=== PATIENT | male | born 1945 | race Caucasian/White ===

== ENCOUNTER 2017-11-21 08:22 | Day surgery (SDC) | payer MEDICARE, OTHER ==
[~2017-11-21] VITALS: Ht 172.7 cm; Wt 86.4 kg
[~2017-11-21 08:22] MED LIST: AMLO5 PO; ASPI81CH PO; Aspir-Low81 MG PO; Belladonna-Opi1 EAC1 RC; CHOL10002 PO; CIPR500 PO; DRON400T PO; FINA5 PO; FLUT44OIA INH; Flonase 0.05% N16 GM; GLIP5ER PO; HYDCHL25 PO; Hydrochlorothia25 MG PO; LOVA40 PO; METF500 PO; METF500C PO; METO25ER PO; METO50ER PO; NEBI5 PO; OMEP20ER PO; TAMS.4ER PO; Ultram50 MG PO; XARELTO20 MG PO
== END 2017-11-21 10:26 | disposition home or self-care (01) ==
LOC: ORSCSDS 08:22
PROVIDERS: Internal Medicine Gastroenterology
PROC: 0DJ08ZZ Inspection of Upper Intestinal Tract, Via Natural or Artificial Opening Endoscopic (ICD-10-PCS; principal; 2017-11-21 09:45)
DX: K31.89 Other diseases of stomach and duodenum (principal); K20.8 Other esophagitis; K21.9 Gastro-esophageal reflux disease without esophagitis; I10 Essential (primary) hypertension; E11.9 Type 2 diabetes mellitus without complications; Z86.73 Personal history of transient ischemic attack (TIA), and cerebral infarction without residual deficits; Z79.899 Other long term (current) drug therapy
CPT/HCPCS: 82947

== ENCOUNTER 2017-11-28 09:41 | Day surgery (SDC) | payer MEDICARE, OTHER ==
[~2017-11-28] VITALS: Ht 172.7 cm; Wt 84.7 kg
[2017-11-28] MEDS ORDERED: LOSA25 PO (10:48)
[2017-11-28] MEDS ORDERED: AMLO5 PO (10:48)
== END 2017-11-28 13:05 | disposition home or self-care (01) ==
LOC: ORSCSDS 09:41
PROVIDERS: Podiatrist Foot & Ankle Surgery
PROC: 0QBR0ZZ Excision of Left Toe Phalanx, Open Approach (ICD-10-PCS; principal; 2017-11-28 11:45)
DX: M20.62 Acquired deformities of toe(s), unspecified, left foot (principal); I48.0 Paroxysmal atrial fibrillation; E11.22 Type 2 diabetes mellitus with diabetic chronic kidney disease; I12.9 Hypertensive chronic kidney disease with stage 1 through stage 4 chronic kidney disease, or unspecified chronic kidney disease; N18.2 Chronic kidney disease, stage 2 (mild); Z86.73 Personal history of transient ischemic attack (TIA), and cerebral infarction without residual deficits; Z79.01 Long term (current) use of anticoagulants; Z79.84 Long term (current) use of oral hypoglycemic drugs; Z79.899 Other long term (current) drug therapy; Z87.891 Personal history of nicotine dependence
CPT/HCPCS: 82947; 93005; 93010; J0171; J2250; J2405; J3010; J7120

== ENCOUNTER 2017-12-19 10:20 | Day surgery (SDC) | payer MEDICARE, OTHER ==
[~2017-12-19] VITALS: Ht 172.7 cm; Wt 84.2 kg
[~2017-12-19 10:20] MED LIST changes: +LOSA25 PO
== END 2017-12-19 11:58 | disposition home or self-care (01) ==
LOC: ORSCSDS 10:20
PROVIDERS: Internal Medicine Gastroenterology
PROC: 0DB68ZX Excision of Stomach, Via Natural or Artificial Opening Endoscopic, Diagnostic (ICD-10-PCS; principal; 2017-12-19 12:00)
DX: K31.89 Other diseases of stomach and duodenum (principal); R11.2 Nausea with vomiting, unspecified; K44.9 Diaphragmatic hernia without obstruction or gangrene; K21.9 Gastro-esophageal reflux disease without esophagitis; I10 Essential (primary) hypertension; I48.0 Paroxysmal atrial fibrillation; E11.42 Type 2 diabetes mellitus with diabetic polyneuropathy; Z79.899 Other long term (current) drug therapy
CPT/HCPCS: 82947; 88305; 88341; 88342; J7120

== ENCOUNTER 2019-08-27 08:19 | Day surgery (SDC) | payer MEDICARE, OTHER ==
[~2019-08-27] VITALS: Ht 172.7 cm; Wt 83.6 kg
[~2019-08-27 08:19] MED LIST changes: +ATOR10 PO; +Bisoprolol Fumar5 MG PO; +ELIQUIS5 MG PO; +MAGNESIUM OXID500 MG PO; +XOLAIR150 MG/1 M SC
--- NOTE | 2019-08-27 09:43 | NUR ---
Ambulatory in Day Surgery. History, Chart, Medications and Allergies reviewed before start of procedure. Lungs clear T/O to Auscultation. Patient confirms NPO status and agrees with scheduled surgery. Pre-Op teaching done. Pt verbalizes understanding. Patient States Post-Procedure ride home has been arranged. Patient reports completing Chlorhexadine shower X2 prior to admission to hospital.
--- NOTE | 2019-08-27 11:50 | NUR ---
PT REPORTS THAT HIS BLOOD PRESSURE HAS BEEN RUNNING LOW FOR PAST FEW WEEKS. PT DENIES DIZZINESS WITH POSITION CHANGES OR WITH STANDING. PT ENCOURAGED TO MONITOR BLOOD PRESSURE AT HOME AND HAVE AVAILABE FOR HIS PCP OR CARDIOLOGY. PT REPORTS SOME PAIN BUT MOVES IN DS WELL. Discharge instructions reviewed with patient. Patient verbalizes understanding. Copy given to patient to take home. Dressing to procedure site clean, dry, intact with no visible drainage, swelling, erythema or bruising noted. Patient States Post-Procedure ride home has been arranged.
--- NOTE | 2019-08-27 11:55 | NUR ---
Discharged via wheelchair to private car for ride home.
--- NOTE | 2019-08-27 15:38 | NUR ---
PT C/O NAUSEA, REGLAN 10MG GIVEN IV. PT CONTINUES TO DRIFT OF TO SLEEP AND O2 SATS DROP INTO THE HIGH 88-90% ON 3L NC. PT ENCOURAGED TO TAKE DEEP BREATHS. BIOX UP TO 96%
--- NOTE | 2019-08-27 15:45 | NUR ---
PT TOOK A FEW ICE CHIPS AND THEN C/O NAUSEA. REGLAN 10MG GIVEN IV. PT CONTINUES TO NEED TO BE ENCOURAGE TO TAKE DEEP BREATHS. PT HAS PERIODS OF APNEA WITH DESATURATION. PT C/O PAIN WITH MOVEMENT OR DEEP BREATHING.
--- NOTE | 2019-08-27 15:58 | NUR ---
PT C/O WANTING TO SLEEP AND PAIN 05/03. PT GIVEN SUBLIMAZE 25MCG SLOW IV PUSH. PT REPORTS NAUSEA BETTER AT THIS TIME.
--- NOTE | 2019-08-27 16:32 | NUR ---
RECEIVED ORDERS FROM DR. TAN TO ADMIT PATIENT FOR EXTENDED RECOVERY DUE TO PT NOT ABLE TO WAKE UP AND STAY AWAKE. PT STILL REQUIRING O2 TO KEEP BIOX ABOVE 92%. PT ROUSES TO VERBAL STIMULI BUT FALLS ASLEEP QUICKLY WITH LIGHT SNORING RESPIRATIONS. WAITING TO PROVIDE REPORT TO NURSE FOR PT TO GO TO ROOM 227. PT UPDATED TO THE PLAN AND SHE REPORTS THAT SHE WILL GO HOME AT THIS TIME. PT UPDATED.
--- NOTE | 2019-08-27 16:40 | NUR ---
REPORT TO CHINO HEATON AT THIS TIME. PT TAKE TO FLOOR VIA [facility]GR[facility] BY DHIRAJ HEATON.
--- NOTE | 2019-08-27 18:14 | NUR ---
PT HAS BEEN STABLE POST OP. PT HAS BEEN SOMNOLENT BUT WAKES EASILY TO VERBAL STIMULI. PT REMAINS ON 2L O2 HIS SATS DROP WITH SLEEP. IV S.L. PT EZEKIEL CLEAR LIQUIDS AND MAY ADVANCE DIET TOLERATED. NO COMPLAINTS OF PAIN. ICE PACK TO ABDOMEN. ABDOMINAL INCISIONS WITH WOUND GLUE AND ABD BINDER IN PLACE. NO VOID YET SINCE MIRANDA DC'D POST OP. PLAN FOR PT TO DC HOME IN THE AM IF STABLE.
--- NOTE | 2019-08-28 06:03 | NUR ---
SUMMARY PT WITH HTN TONIGHT.173/105 CONFIRMED AND DIASTOLIC HU AT 107. I CALLED DR SALINAS AND RECEIVED ORDER FOR COZAAR AT HOME.GAVE 25 MG TONIGHT WITH IMPROVEMENT NOTED.WILL RECEIVE ANOTHER COZAAR THIS AM.NO C/O NAUSEA. VOIDING AND REPOSITIONING.
[2019-08-28] MEDS ORDERED: Percocet 5-3251 EACH PO (10:14)
--- NOTE | 2019-08-28 12:11 | NUR ---
DISCHARGE: EDUCATION PACKET GIVEN TO PT, IV'S DC'D. PT HOME WITH PERCOCET SCRIPT. LEFT UNIT AT ABOUT 1115 WITH KAREN ISBELL VIA WHEELCHAIR
== END 2019-08-28 11:23 | disposition home or self-care (01) ==
LOC: ORSCMMR 08:19 → ORD 10:00 → ORSCMMR 10:00 → SURS 16:53 → ORSCMMR 08-28 11:23
PROVIDERS: Surgery
PROC: 8E0W4CZ Robotic Assisted Procedure of Trunk Region, Percutaneous Endoscopic Approach (ICD-10-PCS; principal; 2019-08-27 10:00)
PROC: 0WUF4JZ Supplement Abdominal Wall with Synthetic Substitute, Percutaneous Endoscopic Approach (ICD-10-PCS; principal; 2019-08-27 10:00)
DX: K43.0 Incisional hernia with obstruction, without gangrene (principal); E11.22 Type 2 diabetes mellitus with diabetic chronic kidney disease; I12.9 Hypertensive chronic kidney disease with stage 1 through stage 4 chronic kidney disease, or unspecified chronic kidney disease; N18.2 Chronic kidney disease, stage 2 (mild); E11.40 Type 2 diabetes mellitus with diabetic neuropathy, unspecified; I25.2 Old myocardial infarction; I48.91 Unspecified atrial fibrillation; Z79.01 Long term (current) use of anticoagulants; Z86.73 Personal history of transient ischemic attack (TIA), and cerebral infarction without residual deficits; Z79.899 Other long term (current) drug therapy
CPT/HCPCS: 49655; S2900; 36415; 82565; 82947; C1781; J0690; J1100; J2250; J2370; J2405; J2704; J2710; J2765; J3010; J7120

== ENCOUNTER 2020-04-19 00:04 | Day surgery (SDC) | payer MEDICARE ==
[~2020-04-19 00:04] MED LIST changes: +Percocet 5-3251 EACH PO; +WARF4 PO
[2020-04-19] MEDS ORDERED: WARF2 PO (10:28)
== END 2020-04-19 10:35 | disposition home or self-care (01) ==
LOC: ATC 00:04
DX: L50.1 Idiopathic urticaria (principal); E11.22 Type 2 diabetes mellitus with diabetic chronic kidney disease; I12.9 Hypertensive chronic kidney disease with stage 1 through stage 4 chronic kidney disease, or unspecified chronic kidney disease; N18.3 Chronic kidney disease, stage 3 (moderate); Z88.0 Allergy status to penicillin; Z88.5 Allergy status to narcotic agent; Z79.84 Long term (current) use of oral hypoglycemic drugs; F17.290 Nicotine dependence, other tobacco product, uncomplicated; Z79.01 Long term (current) use of anticoagulants
CPT/HCPCS: 96372; J2357

== ENCOUNTER 2020-08-23 00:13 | Day surgery (SDC) | payer MEDICARE, BC ==
[~2020-08-23 00:13] MED LIST changes: +WARF2 PO
== END 2020-08-23 09:48 | disposition home or self-care (01) ==
LOC: ATC 00:13
DX: L40.1 Generalized pustular psoriasis (principal); E11.22 Type 2 diabetes mellitus with diabetic chronic kidney disease; I12.9 Hypertensive chronic kidney disease with stage 1 through stage 4 chronic kidney disease, or unspecified chronic kidney disease; N18.3 Chronic kidney disease, stage 3 (moderate); Z88.0 Allergy status to penicillin; Z88.5 Allergy status to narcotic agent; Z79.899 Other long term (current) drug therapy; Z79.84 Long term (current) use of oral hypoglycemic drugs; Z79.01 Long term (current) use of anticoagulants; Z87.891 Personal history of nicotine dependence
CPT/HCPCS: 96372; J2357

== ENCOUNTER 2020-10-02 00:24 | Day surgery (SDC) | payer MEDICARE, BC | END 2020-10-02 08:19 | disposition home or self-care (01) | LOC: ATC 00:24 | DX: L50.1 Idiopathic urticaria (principal); I12.9 Hypertensive chronic kidney disease with stage 1 through stage 4 chronic kidney disease, or unspecified chronic kidney disease; E11.22 Type 2 diabetes mellitus with diabetic chronic kidney disease; N18.2 Chronic kidney disease, stage 2 (mild); I48.0 Paroxysmal atrial fibrillation; I25.10 Atherosclerotic heart disease of native coronary artery without angina pectoris; N25.81 Secondary hyperparathyroidism of renal origin; I25.2 Old myocardial infarction; E78.5 Hyperlipidemia, unspecified; Z88.0 Allergy status to penicillin; Z88.5 Allergy status to narcotic agent; Z79.84 Long term (current) use of oral hypoglycemic drugs; Z79.51 Long term (current) use of inhaled steroids; Z79.01 Long term (current) use of anticoagulants; Z79.899 Other long term (current) drug therapy; Z87.891 Personal history of nicotine dependence | CPT/HCPCS: J2357 ==

== ENCOUNTER 2020-10-25 09:50 | Day surgery (SDC) | payer MEDICARE, BC | END 2020-10-25 10:06 | disposition home or self-care (01) | LOC: ATC 09:50 | DX: L50.1 Idiopathic urticaria (principal); Z88.0 Allergy status to penicillin; Z88.5 Allergy status to narcotic agent; Z79.84 Long term (current) use of oral hypoglycemic drugs; Z79.01 Long term (current) use of anticoagulants; Z79.899 Other long term (current) drug therapy | CPT/HCPCS: 96372; J2357 ==

== ENCOUNTER 2021-01-01 00:24 | Day surgery (SDC) | payer MEDICARE, BC | END 2021-01-01 08:15 | disposition home or self-care (01) | LOC: ATC 00:24 | DX: L50.9 Urticaria, unspecified (principal); Z88.0 Allergy status to penicillin; Z88.5 Allergy status to narcotic agent; Z79.01 Long term (current) use of anticoagulants; Z86.73 Personal history of transient ischemic attack (TIA), and cerebral infarction without residual deficits; E11.22 Type 2 diabetes mellitus with diabetic chronic kidney disease; N18.30 Chronic kidney disease, stage 3 unspecified; I48.91 Unspecified atrial fibrillation; M17.0 Bilateral primary osteoarthritis of knee | CPT/HCPCS: 96372; J2357 ==

== ENCOUNTER 2021-01-29 01:03 | Day surgery (SDC) | payer MEDICARE, BC | END 2021-01-29 09:49 | disposition home or self-care (01) | LOC: ATC 01:03 | DX: L50.1 Idiopathic urticaria (principal); I48.91 Unspecified atrial fibrillation; E11.22 Type 2 diabetes mellitus with diabetic chronic kidney disease; N18.30 Chronic kidney disease, stage 3 unspecified; C61 Malignant neoplasm of prostate; M17.0 Bilateral primary osteoarthritis of knee; Z79.01 Long term (current) use of anticoagulants; Z86.73 Personal history of transient ischemic attack (TIA), and cerebral infarction without residual deficits; Z88.5 Allergy status to narcotic agent; Z88.0 Allergy status to penicillin | CPT/HCPCS: 96372; J2357 ==

== ENCOUNTER 2021-03-01 00:36 | Day surgery (SDC) | payer MEDICARE, BC | END 2021-03-01 09:58 | disposition home or self-care (01) | LOC: ATC 00:36 | DX: L50.1 Idiopathic urticaria (principal); I48.91 Unspecified atrial fibrillation; E11.22 Type 2 diabetes mellitus with diabetic chronic kidney disease; N18.30 Chronic kidney disease, stage 3 unspecified; I25.2 Old myocardial infarction; M17.0 Bilateral primary osteoarthritis of knee; Z86.73 Personal history of transient ischemic attack (TIA), and cerebral infarction without residual deficits; Z79.01 Long term (current) use of anticoagulants; Z85.46 Personal history of malignant neoplasm of prostate | CPT/HCPCS: 96372; J2357 ==

== ENCOUNTER 2021-03-29 02:03 | Day surgery (SDC) | payer MEDICARE, BC | END 2021-03-29 10:00 | disposition home or self-care (01) | LOC: ATC 02:03 | DX: L50.1 Idiopathic urticaria (principal) | CPT/HCPCS: 96372; J2357 ==

== ENCOUNTER 2021-04-30 00:14 | Day surgery (SDC) | payer MEDICARE, BC ==
[2021-04-30] MEDS ORDERED: TERB250 PO (10:19)
[2021-04-30] MEDS ORDERED: AMLO5 PO (10:19)
[2021-04-30] MEDS ORDERED: POTA10T PO (10:19)
[2021-04-30] MEDS ORDERED: ECONAZOLE NITRA30 GM TOP (10:20)
== END 2021-04-30 10:13 | disposition home or self-care (01) ==
LOC: ATC 00:14
DX: L50.1 Idiopathic urticaria (principal); I25.2 Old myocardial infarction; I48.91 Unspecified atrial fibrillation; E11.22 Type 2 diabetes mellitus with diabetic chronic kidney disease; N18.30 Chronic kidney disease, stage 3 unspecified; M17.0 Bilateral primary osteoarthritis of knee; Z88.5 Allergy status to narcotic agent; Z88.0 Allergy status to penicillin; Z86.73 Personal history of transient ischemic attack (TIA), and cerebral infarction without residual deficits; Z85.46 Personal history of malignant neoplasm of prostate; Z79.84 Long term (current) use of oral hypoglycemic drugs; Z79.01 Long term (current) use of anticoagulants
CPT/HCPCS: 96372; J2357

== ENCOUNTER 2021-05-30 00:05 | Day surgery (SDC) | payer MEDICARE, BC ==
[~2021-05-30 00:05] MED LIST changes: +ECONAZOLE NITRA30 GM TOP; +POTA10T PO; +TERB250 PO
== END 2021-05-30 10:15 | disposition home or self-care (01) ==
LOC: ATC 00:05
DX: L50.1 Idiopathic urticaria (principal); I48.91 Unspecified atrial fibrillation; E11.22 Type 2 diabetes mellitus with diabetic chronic kidney disease; N18.30 Chronic kidney disease, stage 3 unspecified; M17.10 Unilateral primary osteoarthritis, unspecified knee; C61 Malignant neoplasm of prostate; I25.2 Old myocardial infarction; Z86.73 Personal history of transient ischemic attack (TIA), and cerebral infarction without residual deficits; Z88.1 Allergy status to other antibiotic agents; Z88.5 Allergy status to narcotic agent; Z79.84 Long term (current) use of oral hypoglycemic drugs; Z79.01 Long term (current) use of anticoagulants; Z79.899 Other long term (current) drug therapy
CPT/HCPCS: 96372; J2357

== ENCOUNTER 2021-06-27 01:14 | Day surgery (SDC) | payer MEDICARE, BC | END 2021-06-27 09:58 | disposition home or self-care (01) | LOC: ATC 01:14 | DX: L50.1 Idiopathic urticaria (principal); Z88.5 Allergy status to narcotic agent | CPT/HCPCS: 96372; J2357 ==

== ENCOUNTER 2021-08-14 08:56 | Day surgery (SDC) | payer MEDICARE, BC | END 2021-08-14 09:27 | disposition home or self-care (01) | LOC: ATC 08:56 | DX: L50.1 Idiopathic urticaria (principal) | CPT/HCPCS: 96372; J2357 ==

== ENCOUNTER 2021-10-03 04:33 | Day surgery (SDC) | payer MEDICARE, BC | END 2021-10-03 09:28 | disposition home or self-care (01) | LOC: ATC 04:33 | DX: L50.1 Idiopathic urticaria (principal) | CPT/HCPCS: 96372; J2357 ==

== ENCOUNTER 2021-10-31 00:14 | Day surgery (SDC) | payer MEDICARE, BC | END 2021-10-31 10:10 | disposition home or self-care (01) | LOC: ATC 00:14 | DX: L50.1 Idiopathic urticaria (principal); Z86.16 Personal history of COVID-19 | CPT/HCPCS: J2357 ==

== ENCOUNTER 2021-11-28 04:59 | Day surgery (SDC) | payer MEDICARE, BC | END 2021-11-28 09:40 | disposition home or self-care (01) | LOC: ATC 04:59 | DX: L50.1 Idiopathic urticaria (principal) | CPT/HCPCS: 96372; J2357 ==

== ENCOUNTER 2022-02-27 01:21 | Day surgery (SDC) | payer MEDICARE, BC | END 2022-02-27 10:18 | disposition home or self-care (01) | LOC: ATC 01:21 | DX: L50.1 Idiopathic urticaria (principal); L50.8 Other urticaria | CPT/HCPCS: 96372; J2357 ==

== ENCOUNTER 2022-04-01 00:54 | Day surgery (SDC) | payer MEDICARE, BC | END 2022-04-01 10:17 | disposition home or self-care (01) | LOC: ATC 00:54 | DX: L50.1 Idiopathic urticaria (principal) | CPT/HCPCS: J2357 ==

== ENCOUNTER 2022-05-03 10:22 | Day surgery (SDC) | payer MEDICARE, BC | END 2022-05-03 15:08 | disposition home or self-care (01) | LOC: ATC 10:22 | DX: L50.1 Idiopathic urticaria (principal) | CPT/HCPCS: 96372; J2357 ==

== ENCOUNTER 2022-06-03 00:21 | Day surgery (SDC) | payer MEDICARE, BC ==
[2022-08-13] MEDS ORDERED: HYDCHL50 PO (11:24)
== END 2022-06-03 10:53 | disposition home or self-care (01) ==
LOC: ATC 00:21
DX: L50.1 Idiopathic urticaria (principal); Z86.16 Personal history of COVID-19
CPT/HCPCS: 96372; J2357

== ENCOUNTER 2022-12-12 00:13 | Day surgery (SDC) | payer MEDICARE, BC ==
[~2022-12-12 00:13] MED LIST changes: +HYDCHL50 PO; +TOUJEO SOL300 UNIT/2 SC
== END 2022-12-12 09:59 | disposition home or self-care (01) ==
LOC: ATC 00:13
DX: L50.1 Idiopathic urticaria (principal)
CPT/HCPCS: 96372; J2357

== ENCOUNTER 2023-01-13 00:33 | Day surgery (SDC) | payer MEDICARE, BC | END 2023-01-13 10:20 | disposition home or self-care (01) | LOC: ATC 00:33 | DX: L50.1 Idiopathic urticaria (principal); E11.9 Type 2 diabetes mellitus without complications; I10 Essential (primary) hypertension; E78.00 Pure hypercholesterolemia, unspecified | CPT/HCPCS: J2357 ==

== ENCOUNTER 2023-05-01 03:35 | Day surgery (SDC) | payer MEDICARE, OTHER ==
[2023-05-01 14:23] VITALS: BP 106/76
== END 2023-05-01 14:28 | disposition home or self-care (01) ==
LOC: ATC 03:35
DX: L50.1 Idiopathic urticaria (principal); I10 Essential (primary) hypertension; E11.9 Type 2 diabetes mellitus without complications; Z79.4 Long term (current) use of insulin; Z79.899 Other long term (current) drug therapy
CPT/HCPCS: 96372; J2357

== ENCOUNTER 2023-10-07 02:14 | Day surgery (SDC) | payer MEDICARE, OTHER ==
[2023-10-07 11:15] VITALS: BP 124/77
== END 2023-10-07 11:22 | disposition home or self-care (01) ==
LOC: ATC 02:14
DX: L50.1 Idiopathic urticaria (principal); E11.9 Type 2 diabetes mellitus without complications; I10 Essential (primary) hypertension; E78.00 Pure hypercholesterolemia, unspecified; I48.91 Unspecified atrial fibrillation; Z79.899 Other long term (current) drug therapy
CPT/HCPCS: 96372; J2357

== ENCOUNTER 2023-11-11 00:42 | Day surgery (SDC) | payer MEDICARE, OTHER ==
[2023-11-11 10:15] VITALS: BP 135/99
== END 2023-11-11 10:25 | disposition home or self-care (01) ==
LOC: ATC 00:42
DX: L50.1 Idiopathic urticaria (principal); E11.9 Type 2 diabetes mellitus without complications; I10 Essential (primary) hypertension; E78.00 Pure hypercholesterolemia, unspecified; I48.91 Unspecified atrial fibrillation; K21.9 Gastro-esophageal reflux disease without esophagitis
CPT/HCPCS: 96372; J2357

== ENCOUNTER 2023-12-22 02:43 | Day surgery (SDC) | payer MEDICARE, OTHER ==
[2023-12-22 11:17] VITALS: BP 139/76
[2023-12-24] MEDS ORDERED: ELIQUIS5 M2 PO (08:35)
== END 2023-12-22 11:10 | disposition home or self-care (01) ==
LOC: ATC 02:43
DX: L50.1 Idiopathic urticaria (principal); I48.91 Unspecified atrial fibrillation; E11.9 Type 2 diabetes mellitus without complications; K21.00 Gastro-esophageal reflux disease with esophagitis, without bleeding
CPT/HCPCS: 96372; J2357

== ENCOUNTER 2024-01-06 09:30 | Day surgery (SDC) | payer MEDICARE, OTHER ==
[~2024-01-06] VITALS: Ht 167.6 cm; Wt 82.3 kg
[2024-01-06] VITALS (14 sets, daily range): BP systolic 87–130; BP diastolic 54–85
[~2024-01-06 09:30] MED LIST changes: +ELIQUIS5 M2 PO
[2024-01-06] MEDS ORDERED: CeFAZolin Sodium 2,000 MG in NS 50 ML IV SCH ×2 (09:45→21:20)
[2024-01-06] MEDS ORDERED: Chlorhexidine Mouth Care 15 ML UDC MT SCH (09:45)
[2024-01-06] MEDS ORDERED: Lactated Ringer's 1,000 ML IV SCH ×2 (09:45→13:50)
[2024-01-06] MEDS ORDERED: Acetaminophen 500 MG Tab PO SCH ×2 (10:00→16:00)
[2024-01-06] MEDS ORDERED: OxyCODONE HCL 10 MG TABCR PO SCH (10:00)
[2024-01-06] MEDS ORDERED: Ropivacaine 0.5% HCl/Pf 67.75 MG,EPINEPHrine HCL 0.25 MG,Ketorolac Tromethamine 15 MG,C... INFIL SCH (10:00)
[2024-01-06] MEDS ORDERED: Midazolam HCl 1MG / ML 2ML Vial ONE (10:36)
[2024-01-06] MEDS ORDERED: FentaNYL Citrate 50 MCG/ML 2 ML Injection ONE (10:36)
[2024-01-06] MEDS ORDERED: propofoL 20 ML IV ONE (10:36)
--- NOTE | 2024-01-06 10:46 | NUR ---
PT TO DAY SURGERY FOR RIGHT TOTAL KNEE ARTHROPLASTY. PLAN OF CARE DISCUSSED. PT WILL BE WAITING FOR PT. VSS.
--- NOTE | 2024-01-06 11:30 | NUR ---
[facility] 2 IV ATTEMPTS
[2024-01-06] MEDS ORDERED: Bupivacaine 0.5% HCl 5 MG/ML 30MLVIAL ONE (12:39)
[2024-01-06] MEDS ORDERED: FentaNYL Citrate 50 MCG/ML 2 ML Injection IV PRN ×2 (12:45→12:50)
[2024-01-06] MEDS ORDERED: Labetalol HCL 5 MG/ML 4ML Injection (Single Dose) IV PRN (12:50)
[2024-01-06] MEDS ORDERED: Metoclopramide HCl 5MG / ML 2ML Vial IV PRN ×2 (12:50→13:50)
[2024-01-06] MEDS ORDERED: Ondansetron HCl 2 MG / ML 2ML Vial ONE (13:23)
[2024-01-06] MEDS ORDERED: Dexamethasone Sod Phos 10 MG/ML 1ML VIAL ONE (13:23)
[2024-01-06] MEDS ORDERED: HYDROmorphone HCl/Pf 1MG SYR IV PRN (13:40)
[2024-01-06] MEDS ORDERED: Fluticasone 0.05% Nasal Spray PRN (13:40)
[2024-01-06] MEDS ORDERED: Omalizumab 150 MG Syringe SC SCH (13:40)
[2024-01-06] MEDS ORDERED: DiphenhydrAMINE HCL 25 MG Cap PO PRN (13:45)
[2024-01-06] MEDS ORDERED: FLU VACC QS2023-24(6MOS UP)/PF 60 MCG/0.5 ML SYRINGE IM SCH (13:45)
[2024-01-06] MEDS ORDERED: Bisacodyl 10 MG Supp PR PRN (13:45)
[2024-01-06] MEDS ORDERED: Promethazine HCl 25 MG Tab PO PRN (13:45)
[2024-01-06] MEDS ORDERED: Ondansetron HCl 2 MG / ML 2ML Vial IV PRN (13:50)
[2024-01-06] MEDS ORDERED: Acetaminophen/Codeine 300-30 mg PO PRN (14:00)
[2024-01-06] MEDS ORDERED: Magnesium Hydroxide Conc 10 ML UDC PO PRN (14:00)
--- NOTE | 2024-01-06 15:47 | NUR ---
PT ARRIVED TO UNIT FROM PACU. VERY SLEEPY. WAKES BRIEFLY TO VOICE AND THEN RETURNS TO SLEEP. VSS. 02 SATS ADEQUATE ON 2L NC. HRR. PT WIGGLED TOES WHEN AWAKE. JONATHAN WRAP TO RLE CDI. POLAR PACK IN PLACE. ORIENTED TO USE OF CALL LIGHT. BEDSIDE.
[2024-01-06] MEDS ORDERED: TraMADol HCl 50 MG Tab PO PRN (16:10)
[2024-01-06] MEDS ORDERED: Omeprazole 20 MG CapCR PO SCH (16:30)
[2024-01-06] MEDS ORDERED: Insulin Regular 100 UNIT/ML 10ML Vial SC SCH (16:30)
--- NOTE | 2024-01-06 17:25 | NUR ---
SUMMARY PT SLEEPING SOUNDLY SINCE ARRIVING TO UNIT. VSS. CALL LIGHT IN REACH.
[2024-01-06] MEDS ORDERED: Ketorolac Tromethamine 15mg Vial IV SCH (18:00)
--- NOTE | 2024-01-06 20:22 | NUR ---
AMINA TO START POD [address] MODI.
[2024-01-06] MEDS ORDERED: Magnesium Oxide 400 MG Tab PO SCH (21:00)
[2024-01-06] MEDS ORDERED: Apixaban 5 MG Tab PO SCH (21:00)
[2024-01-06] MEDS ORDERED: AmLODIPine Besylate 5 MG Tab PO SCH (21:00)
[2024-01-06] MEDS ORDERED: Insulin Glargine-Yfgn 100 Unit/mL 3 ML SYR SC SCH (21:00)
[2024-01-06] MEDS ORDERED: Docusate Sodium 100 MG Cap PO SCH (21:00)
[2024-01-07 04:49] VITALS: BP 113/68
[2024-01-07 04:54] LABS: BASOPHILS ABSOLUTE AUTO 0.02 K/mm3 (0.00-0.23); BASOPHILS PERCENT AUTO 0 % (0-2); EOSINOPHILS PERCENT AUTO 0 % (0-6); Hematocrit 33.1 % (37.0-53.0); IMMATURE GRAN ABSOLUTE AUTO 0.05 K/mm3 (0.00-0.10); IMMATURE GRAN PERCENT AUTO 1 % (0-1); LYMPHOCYTES PERCENT AUTO 8 % (21-46); MONOCYTES ABSOLUTE AUTO 0.25 K/mm3 (0.16-1.47); MONOCYTES PERCENT AUTO 3 % (4-13); Mean Corpuscular HGB 31.2 pg (26.0-34.0); Mean Corpuscular HGB Conc 33.2 g/dL (31.5-36.5); Mean Corpuscular Volume 94 fL (80-100); Mean Platelet Volume 11.7 fL (9.1-12.4); NEUTROPHILS ABSOLUTE AUTO 8.48 K/mm3 (1.96-9.15); NEUTROPHILS PERCENT AUTO 88 % (41-73); Platelet Count 175 K/mm3 (150-400); RDW Coefficient Variation 14.2 % (11.7-14.2); RDW Standard Deviation 48.5 fL (35.1-46.3); Red Blood Cell Count 3.53 M/mm3 (4.30-5.90)
[2024-01-07 05:25] LABS: Bun/Creatinine Ratio 19.7 (12.0-20.0); Creatinine, Blood 1.78 mg/dL (0.60-1.20); Potassium, Blood 3.6 mmol/L (3.5-5.5)
--- NOTE | 2024-01-07 06:31 | NUR ---
SHIFT SUMMARY NOC. PT POD 1 FOR RIGHT TOTAL KNEE WITH DR. MODI. AQUACEL IS C/D/I WITH POLAR PACK IN PLACE. PAIN MANAGED WITH TRAMADOL X2 TIMES. PT VOIDING, TOLERATING PO INTAKE, AND AMBULATES TO BR WITH FWW, GAIT BELT AND SBA. PT RESTED WITH EYES CLOSED AND CALL LIGHT IN REACH.
[2024-01-07 07:39] VITALS: BP 104/64
[2024-01-07] MEDS ORDERED: TRAM50 PO (08:39)
[2024-01-07] MEDS ORDERED: Potassium Chloride 10 Meq Tablet SA PO SCH (09:00)
[2024-01-07] MEDS ORDERED: Finasteride 5 MG Tab PO SCH (09:00)
[2024-01-07] MEDS ORDERED: Tamsulosin HCl 0.4 MG Cap PO SCH (09:00)
[2024-01-07] MEDS ORDERED: Atorvastatin 10 MG Tab PO SCH (09:00)
[2024-01-07] MEDS ORDERED: HydroCHLOROthiazide 25 mg Tab PO SCH (09:00)
[2024-01-07] MEDS ORDERED: Losartan Potassium 25 MG Tab PO SCH (09:00)
--- NOTE | 2024-01-07 09:52 | NUR ---
Pt. is awake drsses, and sitting in a recliner awaiting discharge when he welcomes my visit. Pt. is pleasant. Facilitate a life review. Pt.displays evidence of being engaged, aware, and prepared to be proactive in his post-op PT. Considered matters of sinai and belief. Prayed for Pt. Pt. verbalized gratitude for the spiritual care visit.
--- NOTE | 2024-01-07 10:11 | NUR ---
DISCHARGE TOLERATING PO INTAKE, PASSING FLATUS, MEDICATED FOR PAIN. PASSES THERAPY. IV TAKEN OUT. DISCHARGE PACKET DISCUSSED AND SIGNED. PACKET WITH PATIENT AND PRSCRIPTIONS WITH PATIENT. PATIENT LEAVES VIA PRIVATE CAR.
== END 2024-01-07 10:11 | disposition home or self-care (01) ==
LOC: ORSCMMR 09:30 → ORD 11:00 → ORSCMMR 11:00 → SURS 15:26 → ORSCMMR 01-07 10:11
PROVIDERS: Orthopaedic Surgery
PROC: 0SRC0JA Replacement of Right Knee Joint with Synthetic Substitute, Uncemented, Open Approach (ICD-10-PCS; principal; 2024-01-06 12:30)
DX: M17.11 Unilateral primary osteoarthritis, right knee (principal); Z96.652 Presence of left artificial knee joint; I48.91 Unspecified atrial fibrillation; Z79.01 Long term (current) use of anticoagulants; E78.5 Hyperlipidemia, unspecified; Z86.73 Personal history of transient ischemic attack (TIA), and cerebral infarction without residual deficits; I25.2 Old myocardial infarction; E11.22 Type 2 diabetes mellitus with diabetic chronic kidney disease; I12.9 Hypertensive chronic kidney disease with stage 1 through stage 4 chronic kidney disease, or unspecified chronic kidney disease; N18.9 Chronic kidney disease, unspecified; Z79.899 Other long term (current) drug therapy
CPT/HCPCS: 36415; 73560-RT; 80048; 82947; 85025; 94660; 94762; 97110; 97116; 97162; A9270; C1776; J0171; J0690; J0735; J1100; J1815; J1885; J2250; J2405; J2704; J2795; J3010; J7120

== ENCOUNTER 2024-03-22 10:53 | Day surgery (SDC) | payer MEDICARE, OTHER ==
[~2024-03-22 10:53] MED LIST changes: +TRAM50 PO
[2024-03-22] MEDS ORDERED: Omalizumab 150 MG Syringe SC SCH (15:00)
[2024-03-22 15:30] VITALS: BP 125/74
== END 2024-03-22 15:36 | disposition home or self-care (01) ==
LOC: ATC 10:53
DX: L50.1 Idiopathic urticaria (principal); I10 Essential (primary) hypertension; E11.9 Type 2 diabetes mellitus without complications; Z79.899 Other long term (current) drug therapy
CPT/HCPCS: 96372; J2357

== ENCOUNTER 2024-05-04 03:34 | Day surgery (SDC) | payer MEDICARE, OTHER ==
[~2024-05-04 03:34] MED LIST changes: +Omalizumab 150 MG Syringe SC SCH
[2024-05-04] MEDS ORDERED: Omalizumab 150 MG Syringe SC SCH (13:30)
[2024-05-04 13:50] VITALS: BP 129/77
== END 2024-05-04 13:50 | disposition home or self-care (01) ==
LOC: ATC 03:34
DX: L50.1 Idiopathic urticaria (principal); I48.91 Unspecified atrial fibrillation; K21.9 Gastro-esophageal reflux disease without esophagitis; E11.9 Type 2 diabetes mellitus without complications
CPT/HCPCS: 96372; J2357

== ENCOUNTER 2024-06-08 02:56 | Day surgery (SDC) | payer MEDICARE, OTHER ==
[~2024-06-08 02:56] MED LIST changes: -Omalizumab 150 MG Syringe SC SCH
[2024-06-08] MEDS ORDERED: Omalizumab 150 MG Syringe SC SCH (07:20)
[2024-06-08 11:38] VITALS: BP 139/78
== END 2024-06-08 11:44 | disposition home or self-care (01) ==
LOC: ATC 02:56
DX: L50.1 Idiopathic urticaria (principal); E11.9 Type 2 diabetes mellitus without complications; K21.9 Gastro-esophageal reflux disease without esophagitis; Z79.899 Other long term (current) drug therapy
CPT/HCPCS: 96372; J2357

== ENCOUNTER 2024-07-13 03:37 | Day surgery (SDC) | payer MEDICARE, OTHER ==
[2024-07-13] MEDS ORDERED: Omalizumab 150 MG Syringe SC SCH (07:10)
[2024-07-13 11:20] VITALS: BP 160/91
== END 2024-07-13 11:28 | disposition home or self-care (01) ==
LOC: ATC 03:37
DX: L50.1 Idiopathic urticaria (principal); E11.9 Type 2 diabetes mellitus without complications; K21.00 Gastro-esophageal reflux disease with esophagitis, without bleeding; Z79.4 Long term (current) use of insulin; Z79.899 Other long term (current) drug therapy
CPT/HCPCS: 96372; J2357

== ENCOUNTER 2024-08-23 04:55 | Day surgery (SDC) | payer MEDICARE, OTHER ==
[2024-08-23] MEDS ORDERED: Omalizumab 150 MG Syringe SC SCH (07:00)
[2024-08-23 10:27] VITALS: BP 136/76
== END 2024-08-23 10:32 | disposition home or self-care (01) ==
LOC: ATC 04:55
DX: L50.1 Idiopathic urticaria (principal); I48.91 Unspecified atrial fibrillation; E11.9 Type 2 diabetes mellitus without complications; K21.9 Gastro-esophageal reflux disease without esophagitis; I10 Essential (primary) hypertension; E78.00 Pure hypercholesterolemia, unspecified
CPT/HCPCS: 96372; J2357

== ENCOUNTER 2024-09-27 00:36 | Day surgery (SDC) | payer MEDICARE, OTHER ==
[2024-09-27] MEDS ORDERED: Omalizumab 150 MG Syringe SC SCH (07:20)
[2024-09-27 10:55] VITALS: BP 125/74
== END 2024-09-27 11:00 | disposition home or self-care (01) ==
LOC: ATC 00:36
DX: L50.1 Idiopathic urticaria (principal); I48.91 Unspecified atrial fibrillation; K21.00 Gastro-esophageal reflux disease with esophagitis, without bleeding; E11.9 Type 2 diabetes mellitus without complications; I10 Essential (primary) hypertension; E78.00 Pure hypercholesterolemia, unspecified; Z79.4 Long term (current) use of insulin; Z79.84 Long term (current) use of oral hypoglycemic drugs; Z79.899 Other long term (current) drug therapy
CPT/HCPCS: 96372; J2357

== ENCOUNTER 2024-11-02 03:29 | Day surgery (SDC) | payer MEDICARE, OTHER ==
[2024-11-02] MEDS ORDERED: Omalizumab 150 MG Syringe SC SCH (07:15)
[2024-11-02 10:59] VITALS: BP 163/85
== END 2024-11-02 11:09 | disposition home or self-care (01) ==
LOC: ATC 03:29
DX: L50.1 Idiopathic urticaria (principal); I48.91 Unspecified atrial fibrillation; E11.9 Type 2 diabetes mellitus without complications; I10 Essential (primary) hypertension; K21.00 Gastro-esophageal reflux disease with esophagitis, without bleeding; E78.00 Pure hypercholesterolemia, unspecified; Z79.4 Long term (current) use of insulin; Z79.84 Long term (current) use of oral hypoglycemic drugs; Z79.899 Other long term (current) drug therapy
CPT/HCPCS: 96372; J2357

== ENCOUNTER 2024-12-06 13:16 | Day surgery (SDC) | payer MEDICARE, OTHER ==
[2024-12-06] MEDS ORDERED: Omalizumab 150 MG Syringe SC SCH (14:45)
[2024-12-06 15:28] VITALS: BP 144/77
== END 2024-12-06 15:30 | disposition home or self-care (01) ==
LOC: ATC 13:16
DX: L50.8 Other urticaria (principal); I48.91 Unspecified atrial fibrillation; K21.9 Gastro-esophageal reflux disease without esophagitis; E11.9 Type 2 diabetes mellitus without complications; Z79.84 Long term (current) use of oral hypoglycemic drugs
CPT/HCPCS: 96372; J2357

== ENCOUNTER 2025-01-10 01:19 | Day surgery (SDC) | payer MEDICARE, OTHER ==
[2025-01-10] MEDS ORDERED: Omalizumab 150 MG Syringe SC SCH (07:00)
[2025-01-10 10:26] VITALS: BP 171/85
== END 2025-01-10 10:24 | disposition home or self-care (01) ==
LOC: ATC 01:19
DX: L50.1 Idiopathic urticaria (principal); I48.91 Unspecified atrial fibrillation; K21.9 Gastro-esophageal reflux disease without esophagitis; E11.9 Type 2 diabetes mellitus without complications; Z79.899 Other long term (current) drug therapy
CPT/HCPCS: 96372; J2357

== ENCOUNTER 2025-02-08 04:00 | Day surgery (SDC) | payer MEDICARE, OTHER ==
[2025-02-08] MEDS ORDERED: Omalizumab 150 MG Syringe SC SCH (07:00)
[2025-02-08 08:42] VITALS: BP 133/72
== END 2025-02-08 08:43 | disposition home or self-care (01) ==
LOC: ATC 04:00
DX: L50.1 Idiopathic urticaria (principal); I10 Essential (primary) hypertension; E78.00 Pure hypercholesterolemia, unspecified; I48.91 Unspecified atrial fibrillation; K21.9 Gastro-esophageal reflux disease without esophagitis; E11.9 Type 2 diabetes mellitus without complications; Z79.4 Long term (current) use of insulin; Z79.84 Long term (current) use of oral hypoglycemic drugs; Z79.899 Other long term (current) drug therapy
CPT/HCPCS: 96372; J2357

== ENCOUNTER 2025-03-08 04:13 | Day surgery (SDC) | payer MEDICARE, OTHER ==
[2025-03-08] MEDS ORDERED: Omalizumab 150 MG Syringe SC SCH (06:55)
[2025-03-08 08:20] VITALS: BP 132/72
== END 2025-03-08 08:29 | disposition home or self-care (01) ==
LOC: ATC 04:13
DX: L50.1 Idiopathic urticaria (principal); I48.91 Unspecified atrial fibrillation; K21.9 Gastro-esophageal reflux disease without esophagitis; E11.9 Type 2 diabetes mellitus without complications; E78.00 Pure hypercholesterolemia, unspecified
CPT/HCPCS: 96372; J2357

== ENCOUNTER 2025-04-05 03:41 | Day surgery (SDC) | payer MEDICARE, OTHER ==
[2025-04-05] MEDS ORDERED: Omalizumab 150 MG Syringe SC SCH (07:00)
[2025-04-05 08:30] VITALS: BP 126/72
== END 2025-04-05 08:30 | disposition home or self-care (01) ==
LOC: ATC 03:41
DX: L50.1 Idiopathic urticaria (principal); I48.91 Unspecified atrial fibrillation; K21.00 Gastro-esophageal reflux disease with esophagitis, without bleeding; E11.9 Type 2 diabetes mellitus without complications; I10 Essential (primary) hypertension; E78.00 Pure hypercholesterolemia, unspecified; Z79.84 Long term (current) use of oral hypoglycemic drugs; Z79.899 Other long term (current) drug therapy
CPT/HCPCS: 96372; J2357

== ENCOUNTER 2025-06-03 02:00 | Day surgery (SDC) | payer MEDICARE, OTHER ==
[2025-06-03] MEDS ORDERED: Omalizumab 150 MG Syringe SC SCH (06:55)
[2025-06-03 14:37] VITALS: BP 130/78
== END 2025-06-03 14:41 | disposition home or self-care (01) ==
LOC: ATC 02:00
DX: L50.1 Idiopathic urticaria (principal); I48.91 Unspecified atrial fibrillation; I10 Essential (primary) hypertension; K21.00 Gastro-esophageal reflux disease with esophagitis, without bleeding; E11.9 Type 2 diabetes mellitus without complications; E78.00 Pure hypercholesterolemia, unspecified; Z79.4 Long term (current) use of insulin; Z79.899 Other long term (current) drug therapy
CPT/HCPCS: 96372; J2357

== ENCOUNTER 2025-07-15 00:17 | Day surgery (SDC) | payer MEDICARE, OTHER ==
[2025-07-15] MEDS ORDERED: Omalizumab 150 MG Syringe SC SCH (06:50)
[2025-07-15 08:26] VITALS: BP 130/74
== END 2025-07-15 08:30 | disposition home or self-care (01) ==
LOC: ATC 00:17
DX: L50.1 Idiopathic urticaria (principal); I48.91 Unspecified atrial fibrillation; K21.00 Gastro-esophageal reflux disease with esophagitis, without bleeding; E11.9 Type 2 diabetes mellitus without complications; Z79.4 Long term (current) use of insulin; Z79.899 Other long term (current) drug therapy
CPT/HCPCS: 96372; J2357

== ENCOUNTER 2025-08-11 00:10 | Day surgery (SDC) | payer MEDICARE, OTHER ==
[2025-08-11] MEDS ORDERED: Omalizumab 150 MG Syringe SC SCH (07:00)
[2025-08-11 08:20] VITALS: BP 125/75
== END 2025-08-11 08:24 | disposition home or self-care (01) ==
LOC: ATC 00:10
DX: L50.1 Idiopathic urticaria (principal); I48.91 Unspecified atrial fibrillation; K21.00 Gastro-esophageal reflux disease with esophagitis, without bleeding; E11.9 Type 2 diabetes mellitus without complications; I10 Essential (primary) hypertension; E78.00 Pure hypercholesterolemia, unspecified; Z79.84 Long term (current) use of oral hypoglycemic drugs; Z79.899 Other long term (current) drug therapy
CPT/HCPCS: 96372; J2357

== ENCOUNTER 2025-09-08 03:12 | Day surgery (SDC) | payer MEDICARE, OTHER ==
[2025-09-08] MEDS ORDERED: Omalizumab 150 MG Syringe SC SCH (06:00)
[2025-09-08 08:04] VITALS: BP 138/86
== END 2025-09-08 08:11 | disposition home or self-care (01) ==
LOC: ATC 03:12
DX: L50.1 Idiopathic urticaria (principal); I48.91 Unspecified atrial fibrillation; K21.00 Gastro-esophageal reflux disease with esophagitis, without bleeding; E11.9 Type 2 diabetes mellitus without complications; I10 Essential (primary) hypertension; E78.00 Pure hypercholesterolemia, unspecified; Z79.84 Long term (current) use of oral hypoglycemic drugs; Z79.899 Other long term (current) drug therapy
CPT/HCPCS: 96372; J2357

== ENCOUNTER 2025-10-05 00:19 | Day surgery (SDC) | payer MEDICARE, OTHER ==
[2025-10-05] MEDS ORDERED: Omalizumab 150 MG Syringe SC SCH (07:00)
[2025-10-05 08:22] VITALS: BP 113/65
[2025-10-05] MEDS ORDERED: FARXIGA10 MG PO (08:31)
== END 2025-10-05 08:28 | disposition home or self-care (01) ==
LOC: ATC 00:19
DX: L50.1 Idiopathic urticaria (principal); E11.9 Type 2 diabetes mellitus without complications; I48.91 Unspecified atrial fibrillation; K21.00 Gastro-esophageal reflux disease with esophagitis, without bleeding; Z79.899 Other long term (current) drug therapy
CPT/HCPCS: 96372; J2357

== ENCOUNTER 2025-11-09 01:29 | Day surgery (SDC) | payer MEDICARE, OTHER ==
[~2025-11-09 01:29] MED LIST changes: +FARXIGA10 MG PO
[2025-11-09] MEDS ORDERED: Omalizumab 150 MG Syringe SC SCH (06:00)
[2025-11-09 08:20] VITALS: BP 134/78
== END 2025-11-09 08:27 | disposition home or self-care (01) ==
LOC: ATC 01:29
DX: L50.1 Idiopathic urticaria (principal); I48.91 Unspecified atrial fibrillation; K21.00 Gastro-esophageal reflux disease with esophagitis, without bleeding; E11.9 Type 2 diabetes mellitus without complications; I10 Essential (primary) hypertension; E78.00 Pure hypercholesterolemia, unspecified; Z79.84 Long term (current) use of oral hypoglycemic drugs; Z79.899 Other long term (current) drug therapy
CPT/HCPCS: 96372; J2357